=== PATIENT | female | born 1995 | race Caucasian/White ===

== ENCOUNTER 2018-10-05 08:51 | Outpatient (CLI) | payer SELFPAY ==
[~2018-10-05] VITALS: Ht 160 cm; Wt 62.1 kg
[2018-10-05 09:24] VITALS: BP 112/65; PULSE 66; RESP 17
[2018-10-05 09:44] VITALS: Ht 160 cm; Wt 62.1 kg
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
== END 2018-10-05 13:45 | disposition home or self-care (01) ==
LOC: L-D 08:51 → OBT 08:51
PROVIDERS: ATTEND Obstetrics & Gynecology
DX: O9A.212 Injury, poisoning and certain other consequences of external causes complicating pregnancy, second trimester (principal); Z3A.21 21 weeks gestation of pregnancy
CPT/HCPCS: 76815; 76817; 85025; 85460; 86850; 86900; 86901; G0463